=== PATIENT | female | born 1995 | race Caucasian/White ===

== ENCOUNTER 2018-02-13 08:37 | Inpatient (IN) | payer OTHER ==
[~2018-02-13] VITALS: Ht 157.5 cm; Wt 49.1 kg
[~2018-02-13 08:37] MED LIST: DEPRESSION
[2018-02-13 09:14] LABS: BASOPHILS # (AUTO) 0.04 x10^3/uL (0-0.1); BASOPHILS % (AUTO) 1 % (0-1); EOSINOPHILS # (AUTO) 0.01 x10^3/uL (0-0.4); EOSINOPHILS % (AUTO) 0 % (1-7); LYMPHOCYTES # (AUTO) 1.63 x10^3/uL (1-3.4); LYMPHOCYTES % (AUTO) 19 % (22-44); MD NO; MEAN CORPUSCULAR HEMOGLOBIN 31.5 pg (27.0-34.8); MEAN CORPUSCULAR HGB CONC 33.3 g/dL (32.4-35.8); MEAN CORPUSCULAR VOLUME 94.5 fL (80-100); MONOCYTES # (AUTO) 0.27 x10^3/uL (0.2-0.8); MONOCYTES % (AUTO) 3 % (2-9); NEUTROPHILS % (AUTO) 77 % (42-75); PLATELET COUNT 223 x10^3/uL (130-400); RED BLOOD COUNT 4.17 x10^6/uL (3.82-5.3); RED CELL DISTRIBUTION WIDTH 12.7 % (9.6-15.2)
[2018-02-13 09:27] LABS: ALBUMIN 3.7 g/dL (3.4-5.0); ANION GAP 8 mmol/L (5-15); CALCIUM 7.7 mg/dL (8.5-10.1); CHLORIDE 112 mmol/L (98-107); CREATININE 0.63 mg/dL (0.55-1.02); SALICYLATE LEVEL < 1.7 mg/dL (2.8-20.0)
[2018-02-13 09:33] LABS: ACETAMINOPHEN < 2 mcg/mL (10-30)
[2018-02-13] MEDS ORDERED: POLYETHYLENE GLYCOL 17 GM PACKET PO PRN (15:00)
[2018-02-13] MEDS ORDERED: BISACODYL 10 MG SUPP PR PRN (15:00)
[2018-02-13 15:24] LABS: ALANINE AMINOTRANSFERASE 34 U/L (12-78); ALBUMIN 3.7 g/dL (3.4-5.0)
[2018-02-13] MEDS ORDERED: PROCHLORPERAZINE 5 MG/ML, 2ML IM PRN (15:30)
[2018-02-13 15:35] LABS: ALKALINE PHOSPHATASE 56 U/L (45-117); BILIRUBIN,TOTAL 0.2 mg/dL (0.2-1.0); FREE T4 (FREE THYROXINE) 1.36 ng/dL (0.76-1.46); TOTAL PROTEIN 7.1 g/dL (6.4-8.2)
[2018-02-13 15:35] LABS: AMPHETAMINE SCREEN, URINE Negative (Negative); BARBITURATE SCREEN, URINE Negative (Negative); BENZODIAZEPINE SCREEN, URINE Positive (Negative); CANNABINOID SCREEN, URINE Negative (Negative); COCAINE SCREEN, URINE Negative (Negative); METHADONE SCREEN, URINE Negative (Negative); OPIATE SCREEN, URINE Negative (Negative)
[2018-02-13 15:40] LABS: BILIRUBIN, DIRECT < 0.1 mg/dL (0.1-0.2); BILIRUBIN,INDIRECT 0.1 mg/dL (0.0-2.0)
[2018-02-13] MEDS ORDERED: HEPARIN 5,000 UNITS/ML, 1ML ONE (15:45)
[2018-02-13] MEDS ORDERED: PROCHLORPERAZINE 5 MG/ML, 2ML ONE (15:45)
[2018-02-13] MEDS: HEPARIN 5,000 UNITS/ML, 1ML SQ SCH (15:56)
[2018-02-13 16:41] VITALS: BP 94/58
[2018-02-13] MEDS: NICOTINE 14MG/24 HR PATCH.TD24 TD SCH (17:51)
[2018-02-13] MEDS: SODIUM CHLORIDE 0.9% 1,000 ML IV SCH ×2 (17:51→23:30)
[2018-02-13 18:07] VITALS: BP 94/58
[2018-02-13 18:30] VITALS: BP 102/62
[2018-02-13] MEDS: CALCIUM CARBONATE 500 MG TAB.CHEW PO SCH (21:00)
[2018-02-14] MEDS: HEPARIN 5,000 UNITS/ML, 1ML SQ SCH ×4 (00:35→20:31)
[2018-02-14] MEDS: SODIUM CHLORIDE 0.9% 1,000 ML IV SCH ×3 (00:39→20:18)
[2018-02-14 01:12] VITALS: BP 100/66
[2018-02-14 04:32] VITALS: BP 99/66
[2018-02-14 06:04] LABS: ALANINE AMINOTRANSFERASE 25 U/L (12-78); ALBUMIN 2.9 g/dL (3.4-5.0); ANION GAP 7 mmol/L (5-15); CALCIUM 7.5 mg/dL (8.5-10.1); CHLORIDE 110 mmol/L (98-107); CREATININE 0.64 mg/dL (0.55-1.02)
[2018-02-14 06:06] LABS: ALKALINE PHOSPHATASE 49 U/L (45-117); BILIRUBIN,TOTAL 0.6 mg/dL (0.2-1.0); TOTAL PROTEIN 5.7 g/dL (6.4-8.2)
[2018-02-14 08:06] VITALS: BP 108/67
[2018-02-14] MEDS ORDERED: POTASSIUM CHLORIDE 20 MEQ TAB.ER.PRT PO ONE (09:00)
[2018-02-14] MEDS: CALCIUM CARBONATE 500 MG TAB.CHEW PO SCH ×2 (09:27→20:19)
[2018-02-14] MEDS: THIAMINE 100MG TABLET PO SCH (09:28)
[2018-02-14] MEDS: FOLIC ACID 1 MG TABLET PO SCH (09:28)
[2018-02-14] MEDS: MULTIVITAMINS/MINERALS TABLET PO SCH (09:28)
[2018-02-14 12:46] LABS: AMPHETAMINE SCREEN, URINE Negative (Negative); BARBITURATE SCREEN, URINE Negative (Negative); BENZODIAZEPINE SCREEN, URINE Positive (Negative); CANNABINOID SCREEN, URINE Negative (Negative); COCAINE SCREEN, URINE Negative (Negative); METHADONE SCREEN, URINE Negative (Negative); OPIATE SCREEN, URINE Negative (Negative)
[2018-02-14 13:08] VITALS: BP_SYST 110; BP_SYST 150; BP_DIAS 74; BP_DIAS 85
[2018-02-14] MEDS: NICOTINE 14MG/24 HR PATCH.TD24 TD SCH (16:29)
[2018-02-14 19:18] VITALS: BP 107/70
[2018-02-15 00:34] VITALS: BP 99/64
[2018-02-15] MEDS: HEPARIN 5,000 UNITS/ML, 1ML SQ SCH ×3 (04:24→20:34)
[2018-02-15 05:14] LABS: ALBUMIN 3.2 g/dL (3.4-5.0); ANION GAP 6 mmol/L (5-15); CALCIUM 8.2 mg/dL (8.5-10.1); CHLORIDE 109 mmol/L (98-107)
[2018-02-15 05:15] LABS: CREATININE 0.71 mg/dL (0.55-1.02)
[2018-02-15 07:23] VITALS: BP 118/71
[2018-02-15] MEDS: SODIUM CHLORIDE 0.9% 1,000 ML IV SCH ×3 (07:30→23:30)
[2018-02-15] MEDS: LORazepam 1MG TABLET PO PRN ×3 (09:52→20:34)
[2018-02-15] MEDS: THIAMINE 100MG TABLET PO SCH (09:52)
[2018-02-15] MEDS: FOLIC ACID 1 MG TABLET PO SCH (09:53)
[2018-02-15] MEDS: MULTIVITAMINS/MINERALS TABLET PO SCH (09:53)
[2018-02-15] MEDS: CALCIUM CARBONATE 500 MG TAB.CHEW PO SCH ×2 (09:53→20:34)
[2018-02-15] MEDS: MAGNESIUM OXIDE 400 MG TABLET PO SCH ×2 (09:53→20:34)
[2018-02-15 13:43] VITALS: BP 117/82
[2018-02-15] MEDS: NICOTINE 14MG/24 HR PATCH.TD24 TD SCH (14:35)
[2018-02-15 18:57] VITALS: BP 111/71
[2018-02-16 02:10] VITALS: BP 101/66
[2018-02-16] MEDS: HEPARIN 5,000 UNITS/ML, 1ML SQ SCH ×3 (06:08→20:56)
[2018-02-16] MEDS: SODIUM CHLORIDE 0.9% 1,000 ML IV SCH (07:30)
[2018-02-16 07:37] VITALS: BP 99/66
[2018-02-16] MEDS: CALCIUM CARBONATE 500 MG TAB.CHEW PO SCH ×2 (09:00→20:57)
[2018-02-16] MEDS: FOLIC ACID 1 MG TABLET PO SCH (09:00)
[2018-02-16] MEDS: LORazepam 1MG TABLET PO PRN ×4 (09:12→22:44)
[2018-02-16] MEDS: MAGNESIUM OXIDE 400 MG TABLET PO SCH ×2 (09:12→20:56)
[2018-02-16] MEDS: MULTIVITAMINS/MINERALS TABLET PO SCH (09:12)
[2018-02-16] MEDS: THIAMINE 100MG TABLET PO SCH (09:12)
[2018-02-16 13:46] VITALS: BP 101/70
[2018-02-16] MEDS ORDERED: LORazepam 0.5MG TABLET PO ONE (14:00)
[2018-02-16] MEDS: NICOTINE 14MG/24 HR PATCH.TD24 TD SCH (15:08)
[2018-02-16 19:54] VITALS: BP 101/67
[2018-02-17 00:15] VITALS: BP 102/67
[2018-02-17] MEDS: HEPARIN 5,000 UNITS/ML, 1ML SQ SCH ×3 (06:00→21:13)
[2018-02-17 08:02] VITALS: BP 96/68
[2018-02-17] MEDS: MULTIVITAMINS/MINERALS TABLET PO SCH (08:20)
[2018-02-17] MEDS: MAGNESIUM OXIDE 400 MG TABLET PO SCH ×2 (08:20→21:12)
[2018-02-17] MEDS: FOLIC ACID 1 MG TABLET PO SCH (08:20)
[2018-02-17] MEDS: THIAMINE 100MG TABLET PO SCH (08:20)
[2018-02-17] MEDS: CALCIUM CARBONATE 500 MG TAB.CHEW PO SCH ×2 (08:20→21:12)
[2018-02-17] MEDS: LORazepam 1MG TABLET PO PRN ×4 (08:20→21:12)
[2018-02-17 12:21] VITALS: BP 103/72
[2018-02-17] MEDS: NICOTINE 14MG/24 HR PATCH.TD24 TD SCH (12:46)
[2018-02-17 19:00] VITALS: BP 102/67
[2018-02-18 03:30] VITALS: BP 99/65
[2018-02-18] MEDS: HEPARIN 5,000 UNITS/ML, 1ML SQ SCH ×3 (05:20→21:57)
[2018-02-18] MEDS: LORazepam 1MG TABLET PO PRN ×5 (05:29→20:35)
[2018-02-18 08:39] VITALS: BP 91/62
[2018-02-18] MEDS: FOLIC ACID 1 MG TABLET PO SCH (08:57)
[2018-02-18] MEDS: THIAMINE 100MG TABLET PO SCH (08:58)
[2018-02-18] MEDS: MULTIVITAMINS/MINERALS TABLET PO SCH (08:58)
[2018-02-18] MEDS: CALCIUM CARBONATE 500 MG TAB.CHEW PO SCH ×2 (08:58→20:35)
[2018-02-18] MEDS: MAGNESIUM OXIDE 400 MG TABLET PO SCH ×2 (08:58→20:36)
[2018-02-18] MEDS: NICOTINE 14MG/24 HR PATCH.TD24 TD SCH (13:04)
[2018-02-18 13:08] VITALS: BP 117/70
[2018-02-18 18:52] VITALS: BP 97/68
[2018-02-18] MEDS: ARIPIPRAZOLE 5 MG TABLET PO SCH ×2 (19:17→20:36)
[2018-02-19 02:15] VITALS: BP 110/72
[2018-02-19 05:07] LABS: ANION GAP 8 mmol/L (5-15); CHLORIDE 104 mmol/L (98-107)
[2018-02-19 05:08] LABS: CREATININE 0.76 mg/dL (0.55-1.02)
[2018-02-19 05:16] LABS: BASOPHILS # (AUTO) 0.06 x10^3/uL (0-0.1); BASOPHILS % (AUTO) 1 % (0-1); EOSINOPHILS # (AUTO) 0.06 x10^3/uL (0-0.4); EOSINOPHILS % (AUTO) 1 % (1-7); LYMPHOCYTES # (AUTO) 3.69 x10^3/uL (1-3.4); LYMPHOCYTES % (AUTO) 41 % (22-44); MD NO; MEAN CORPUSCULAR HEMOGLOBIN 31.6 pg (27.0-34.8); MEAN CORPUSCULAR HGB CONC 33.5 g/dL (32.4-35.8); MEAN CORPUSCULAR VOLUME 94.3 fL (80-100); MEAN PLATELET VOLUME 7.1 fL (7.4-10.4); MONOCYTES # (AUTO) 0.79 x10^3/uL (0.2-0.8); MONOCYTES % (AUTO) 9 % (2-9); NEUTROPHILS # (AUTO) 4.43 x10^3/uL (1.8-6.8); NEUTROPHILS % (AUTO) 49 % (42-75); PLATELET COUNT 350 x10^3/uL (130-400); RED BLOOD COUNT 4.68 x10^6/uL (3.82-5.3); RED CELL DISTRIBUTION WIDTH 12.2 % (9.6-15.2)
[2018-02-19] MEDS: HEPARIN 5,000 UNITS/ML, 1ML SQ SCH ×3 (06:00→20:09)
[2018-02-19 07:53] VITALS: BP 100/66
[2018-02-19] MEDS: MULTIVITAMINS/MINERALS TABLET PO SCH (08:12)
[2018-02-19] MEDS: MAGNESIUM OXIDE 400 MG TABLET PO SCH ×2 (08:12→20:08)
[2018-02-19] MEDS: FOLIC ACID 1 MG TABLET PO SCH (08:12)
[2018-02-19] MEDS: THIAMINE 100MG TABLET PO SCH (08:12)
[2018-02-19] MEDS: ACETAMINOPHEN 325 MG TABLET PO PRN (08:12)
[2018-02-19] MEDS: LORazepam 1MG TABLET PO PRN ×3 (08:12→16:39)
[2018-02-19] MEDS: CALCIUM CARBONATE 500 MG TAB.CHEW PO SCH ×2 (08:14→20:08)
[2018-02-19] MEDS: NICOTINE GUM 2 MG BC PRN ×3 (08:18→20:08)
[2018-02-19] MEDS: GABAPENTIN 100 MG CAPSULE PO SCH ×3 (14:02→20:08)
[2018-02-19 14:20] VITALS: BP 95/63
[2018-02-19 19:11] VITALS: BP 97/66
[2018-02-20 02:31] VITALS: BP 93/61
[2018-02-20] MEDS: HEPARIN 5,000 UNITS/ML, 1ML SQ SCH ×3 (05:14→20:27)
[2018-02-20 08:09] VITALS: BP 106/71
[2018-02-20] MEDS: ARIPIPRAZOLE 5 MG TABLET PO SCH (08:36)
[2018-02-20] MEDS: THIAMINE 100MG TABLET PO SCH (08:36)
[2018-02-20] MEDS: CALCIUM CARBONATE 500 MG TAB.CHEW PO SCH ×2 (08:36→20:10)
[2018-02-20] MEDS: MAGNESIUM OXIDE 400 MG TABLET PO SCH ×2 (08:36→20:28)
[2018-02-20] MEDS: GABAPENTIN 100 MG CAPSULE PO SCH ×2 (08:36→16:27)
[2018-02-20] MEDS: FOLIC ACID 1 MG TABLET PO SCH (08:36)
[2018-02-20] MEDS: MULTIVITAMINS/MINERALS TABLET PO SCH (08:36)
[2018-02-20] MEDS: NICOTINE GUM 2 MG BC PRN ×2 (10:41→22:52)
[2018-02-20] MEDS: LORazepam 1MG TABLET PO PRN (11:36)
[2018-02-20 12:42] VITALS: BP 107/70
[2018-02-20 18:59] VITALS: BP 101/63
[2018-02-20] MEDS: GABAPENTIN 300 MG CAPSULE PO SCH (20:28)
[2018-02-21 01:09] VITALS: BP 97/61
[2018-02-21] MEDS: HEPARIN 5,000 UNITS/ML, 1ML SQ SCH ×2 (05:51→14:00)
[2018-02-21 08:07] VITALS: BP 106/67
[2018-02-21] MEDS: MULTIVITAMINS/MINERALS TABLET PO SCH (08:36)
[2018-02-21] MEDS: GABAPENTIN 300 MG CAPSULE PO SCH (08:36)
[2018-02-21] MEDS: CALCIUM CARBONATE 500 MG TAB.CHEW PO SCH (08:37)
[2018-02-21] MEDS: FOLIC ACID 1 MG TABLET PO SCH (08:37)
[2018-02-21] MEDS: THIAMINE 100MG TABLET PO SCH (08:37)
[2018-02-21] MEDS: MAGNESIUM OXIDE 400 MG TABLET PO SCH (08:37)
[2018-02-21] MEDS: ACETAMINOPHEN 325 MG TABLET PO PRN (08:37)
[2018-02-21] MEDS: ARIPIPRAZOLE 5 MG TABLET PO SCH (08:37)
[2018-02-21] MEDS ORDERED: ARIPIPRAZOLE 5 MG TABLET PO ONE (09:00)
[2018-02-21] MEDS ORDERED: FOLI-17 PO (12:38)
[2018-02-21] MEDS ORDERED: GABA300C10 PO (12:38)
[2018-02-21] MEDS ORDERED: MULT-484 PO (12:38)
[2018-02-21] MEDS ORDERED: ARIP10TA33 PO (12:38)
[2018-02-21] MEDS ORDERED: THIA100T67 PO (12:38)
[2018-02-22] MEDS ORDERED: ARIPIPRAZOLE 10 MG TABLET PO SCH (09:00)
== END 2018-02-21 14:30 | DRG 918 ==
LOC: ED 10:38 → OBSVTOIN 14:12 → EDIP 14:12 → 3NE 16:39
PROVIDERS: ADMIT Hospitalist; ATTEND Hospitalist
DX: T42.6X2A Poisoning by other antiepileptic and sedative-hypnotic drugs, intentional self-harm, initial encounter (principal); Y92.89 Other specified places as the place of occurrence of the external cause; R00.0 Tachycardia, unspecified; E83.51 Hypocalcemia; F10.229 Alcohol dependence with intoxication, unspecified; F31.9 Bipolar disorder, unspecified; F41.0 Panic disorder [episodic paroxysmal anxiety]; F41.1 Generalized anxiety disorder; Y90.3 Blood alcohol level of 60-79 mg/100 ml; Z62.820 Parent-biological child conflict; F32.9 Major depressive disorder, single episode, unspecified; F17.200 Nicotine dependence, unspecified, uncomplicated; Z81.8 Family history of other mental and behavioral disorders; Z91.5 Personal history of self-harm
CPT/HCPCS: 36415; 71045; 80048; 80053; 80076; 80175; 80307; 80329; 82040; 83735; 84100; 84439; 84443; 84702; 84703; 85025; 93005; 96372; 99285; J1644; G0480; J0780; J7030

== ENCOUNTER 2020-09-06 10:00 | Inpatient (IN) | payer OTHER, MEDICAID ==
[~2020-09-06] VITALS: Ht 157.5 cm; Wt 54.5 kg
[~2020-09-06 10:00] MED LIST changes: +ARIP10TA33 PO; +FOLI1TAB32 PO; +GABA300C10 PO; +MULT-484 PO; +THIA100T67 PO
--- NOTE | 2020-09-06 10:19 | NUR ---
Pt ARI [facility] from home after her SO called 911. He reports pt took an intentional overdose of her medications. Unknown time of ingestion but EMS reports that pt was A&O x1 on their arrival, agitated, combative. EMS administered 5mg Versed IV. On pt arrival somnolent, A&Ox0, withdraws from painful stimuli, skin PWD. Pt placed in gown and positioned for comfort in bed. Continuous heart, oxygen and BP Monitors applied, all safety measures observed. Seizure precautions in place. Dr. Hansen at bedside to evaluate pt. Pt does have gag reflex and briefly opens her eyes when asked to. ETCO2 monitoring initiated. Sitter within eyesight of pt.
--- NOTE | 2020-09-06 10:20 | NUR ---
Late entry due to pt care: Pills ingested by pt and approximate amounts taken. Prozac= 20 tabs Camprac= 50tabs Gabapentin= 50tabs Lamictal= 10tabs
[2020-09-06] MEDS ORDERED: SODIUM BICARB 8.4%, 50ML SYRINGE ONE (10:29)
[2020-09-06] MEDS ORDERED: SODIUM BICARBONATE 1 MEQ/ML, 50ML VIAL IVPush ONE (10:30)
[2020-09-06] MEDS ORDERED: SODIUM CHLORIDE 0.9% 1,000ML IVBOLUS ONE (10:30)
[2020-09-06] MEDS ORDERED: LORazepam 2 MG/ML, 1ML ONE (10:58)
--- NOTE | 2020-09-06 11:03 | NUR ---
This RN called into room by sitter. Pt with erratic muscle movements, jerking arms, thrashing in bed, unresponsive to pain. Dr. Hansen called into room. Orders recieved for Ativan 1mg IVP. Pt kept safe by staff members. Pt medicated per order and positioned for comfort. Soft wrist restraints applied per MD order to prevent pt from harming herself. All montiors remain in place, sitter at bedside.
[2020-09-06 11:08] LABS: AMPHETAMINE SCREEN, URINE Negative (Negative); BARBITURATE SCREEN, URINE Negative (Negative); BENZODIAZEPINE SCREEN, URINE Negative (Negative); CANNABINOID SCREEN, URINE Negative (Negative); COCAINE SCREEN, URINE Negative (Negative); METHADONE SCREEN, URINE Negative (Negative); OPIATE SCREEN, URINE Negative (Negative)
[2020-09-06 11:14] LABS: BASOPHILS % (AUTO) 1 % (0-1); EOSINOPHILS % (AUTO) 0 % (1-7); LYMPHOCYTES % (AUTO) 28 % (22-44); MEAN CORPUSCULAR HEMOGLOBIN 31.8 pg (27.0-34.8); MEAN CORPUSCULAR HGB CONC 33.3 g/dL (32.4-35.8); MEAN PLATELET VOLUME 6.8 fL (7.4-10.4); MONOCYTES % (AUTO) 5 % (2-9); NEUTROPHILS % (AUTO) 66 % (42-75); PLATELET COUNT 252 x10^3/uL (130-400); RED BLOOD COUNT 4.14 x10^6/uL (3.82-5.3)
[2020-09-06 11:15] LABS: ALANINE AMINOTRANSFERASE 20 U/L (12-78); ALBUMIN 3.8 g/dL (3.4-5.0); ANION GAP 7 mmol/L (5-15); CALCIUM 7.9 mg/dL (8.5-10.1); CHLORIDE 115 mmol/L (98-107); CREATININE 0.98 mg/dL (0.55-1.02)
[2020-09-06 11:17] LABS: MD NO
[2020-09-06 11:21] LABS: ALKALINE PHOSPHATASE 47 U/L (45-117); BILIRUBIN,TOTAL 0.4 mg/dL (0.2-1.0); SALICYLATE LEVEL 1.9 mg/dL (2.8-20.0); TOTAL PROTEIN 6.4 g/dL (6.4-8.2)
--- NOTE | 2020-09-06 11:29 | NUR ---
Pt appears more calm after medications. Pt's father Kevin arrived at bedside. POC discussed. Pt's father denies other needs.
[2020-09-06] MEDS ORDERED: PIPERACILLIN/TAZO/PMX 3.375GM 50 ML IVPB ONE (11:30)
[2020-09-06] MEDS ORDERED: LORazepam 2 MG/ML, 1ML IVPush ONE ×2 (11:30)
--- NOTE | 2020-09-06 11:34 | NUR ---
Nestor REGAN at bedside to evlauate pt.
[2020-09-06] MEDS ORDERED: PIPERACILLIN/TAZO/PMX 3.375GM 50 ML ONE (11:48)
--- NOTE | 2020-09-06 11:48 | NUR ---
Pt's mother Priti at bedside. POC discussed with pt's mother, she denies needs at this time. Pt condition remains unchanged from previous note.
[2020-09-06] MEDS ORDERED: ROCURONIUM 10 MG/ML,10ML IVPush ONE (13:00)
[2020-09-06] MEDS ORDERED: ETOMIDATE 20 MG/10 ML IV ONE (13:00)
[2020-09-06] MEDS ORDERED: FENTANYL PF 100 MCG/2ML IVPush ONE (13:00)
--- NOTE | 2020-09-06 13:23 | NUR ---
1246-PT MOVED TO TRAUMA 4 1253-MEDICATION ADMINISTRATION FOR INTUBATION, PLEASE SEE EMAR FOR DOSAGES 1255- 7.5 ETT 23 AT THE LIP PLACED. 1304- 16 FR OG TUBE PLACED WITH AUSCULTATION PLACEMENT CONFIRMATION. 1308- XRAY AT BEDSIDE TO CONFIRM OG AND ETT 1312- TEMP PROBE SAINI PLACED. 225 ML URINE OUTPUT UPON PLACEMENT.
[2020-09-06] MEDS ORDERED: ONDANSETRON 2MG/ML, 2ML IVPush PRN (13:30)
[2020-09-06] MEDS ORDERED: LABETALOL 5MG/ML, 20ML IVPush PRN (13:30)
[2020-09-06] MEDS ORDERED: ENALAPRILAT 1.25 MG/ML, 2ML IVPush PRN (13:30)
[2020-09-06] MEDS ORDERED: POLYETHYLENE GLYCOL 17 GM PACKET PO PRN (13:30)
[2020-09-06] MEDS ORDERED: morphine SULFATE 10 MG/ML, 1ML IVPush PRN (13:30)
[2020-09-06] MEDS ORDERED: ACETAMINOPHEN 325 MG TABLET PO PRN (13:30)
[2020-09-06] MEDS ORDERED: BISACODYL 10 MG SUPP PR PRN (13:30)
[2020-09-06] MEDS ORDERED: OXYcodone IR 5MG TABLET PO PRN (13:30)
--- NOTE | 2020-09-06 13:35 | NUR ---
TWO BLANKETS AND BEAR PAW WARMER APPLIED.
--- NOTE | 2020-09-06 13:40 | NUR ---
ELISABETH TOVAR TO GIVE REPORT
--- NOTE | 2020-09-06 13:50 | NUR ---
Report called to Anil BARBER. Floor ready for pt transfer. Pt's family members updated. Pt family members at bedside to be with pt, visiting hours explained to family members who verbalize understanding.
[2020-09-06] MEDS ORDERED: FENTANYL PF 100 MCG/2ML IVPush PRN (14:00)
[2020-09-06] MEDS ORDERED: PHARMACY MAY ADJ FOR RENAL FX MC SCH (14:00)
[2020-09-06] MEDS ORDERED: LIDOCAINE-MPF 1%, 2ML ENDO PRN (14:00)
[2020-09-06] MEDS ORDERED: ENOXAPARIN 40 MG/0.4 ML ONE (14:11)
[2020-09-06] MEDS: ENOXAPARIN 40 MG/0.4 ML SQ SCH (14:38)
[2020-09-06] MEDS: LACTATED RINGERS 1,000 ML IV SCH ×2 (14:38→20:11)
[2020-09-06] MEDS: PROPOFOL 100 ML IV PRN ×2 (15:00→19:18)
[2020-09-06] MEDS: AMPICILLIN/SULBACTAM 3 GM in SODIUM CHLORIDE 0.9% 100 ML IV SCH ×2 (15:57→21:29)
[2020-09-06] MEDS ORDERED: ETOMIDATE 20 MG/10 ML ONE (19:00)
[2020-09-06] MEDS: FAMOTIDINE 20 MG/2 ML IVPush SCH (20:07)
[2020-09-07] MEDS: LACTATED RINGERS 1,000 ML IV SCH ×4 (03:05→23:25)
[2020-09-07] MEDS: PROPOFOL 100 ML IV PRN ×2 (03:05→09:28)
[2020-09-07] MEDS: AMPICILLIN/SULBACTAM 3 GM in SODIUM CHLORIDE 0.9% 100 ML IV SCH ×3 (03:07→17:48)
[2020-09-07 04:27] LABS: BASOPHILS % (AUTO) 1 % (0-1); EOSINOPHILS % (AUTO) 1 % (1-7); LYMPHOCYTES % (AUTO) 32 % (22-44); MEAN CORPUSCULAR HEMOGLOBIN 32.2 pg (27.0-34.8); MEAN CORPUSCULAR HGB CONC 33.4 g/dL (32.4-35.8); MEAN PLATELET VOLUME 7.3 fL (7.4-10.4); MONOCYTES % (AUTO) 6 % (2-9); NEUTROPHILS % (AUTO) 61 % (42-75); PLATELET COUNT 187 x10^3/uL (130-400); RED BLOOD COUNT 3.43 x10^6/uL (3.82-5.3); RED CELL DISTRIBUTION WIDTH 12.3 % (9.6-15.2)
[2020-09-07 04:34] LABS: ALANINE AMINOTRANSFERASE 16 U/L (12-78); ALBUMIN 2.8 g/dL (3.4-5.0); ANION GAP 7 mmol/L (5-15); CALCIUM 7.2 mg/dL (8.5-10.1); CHLORIDE 118 mmol/L (98-107); CREATININE 0.89 mg/dL (0.55-1.02); MD NO
[2020-09-07 04:36] LABS: ALKALINE PHOSPHATASE 39 U/L (45-117); BILIRUBIN,TOTAL 0.5 mg/dL (0.2-1.0); TOTAL PROTEIN 4.8 g/dL (6.4-8.2)
[2020-09-07] MEDS ORDERED: SODIUM PHOSPHATE 10 MMOL in SODIUM CHLORIDE 0.9% 500 ML IV ONE (06:30)
[2020-09-07] MEDS: LORazepam 2 MG/ML, 1ML IVPush PRN (06:59)
[2020-09-07] MEDS ORDERED: MIDAZOLAM HCL 50 MG in SODIUM CHLORIDE 0.9% 40 ML IV PRN (07:00)
[2020-09-07 07:32] LABS: SALICYLATE LEVEL < 1.7 mg/dL (2.8-20.0)
[2020-09-07] MEDS ORDERED: VANCOMYCIN 1,400 MG in SODIUM CHLORIDE 0.9% 250 ML IV ONE (08:00)
[2020-09-07] MEDS ORDERED: VANCOMYCIN PER PHARMACY MC PRN (08:00)
[2020-09-07] MEDS ORDERED: PHARMACOKINETIC MONITORING MC PRN (08:00)
[2020-09-07] MEDS ORDERED: PHARMACOKINETIC CONSULTATION MC ONE (08:00)
[2020-09-07] MEDS: FAMOTIDINE 20 MG/2 ML IVPush SCH ×2 (08:21→20:53)
[2020-09-07] MEDS: POTASSIUM CHLORIDE 20 MEQ PACKET PO SCH ×2 (08:22→20:54)
[2020-09-07] MEDS: SENNA/DOCUSATE TABLET PO SCH (08:22)
[2020-09-07] MEDS: ENOXAPARIN 40 MG/0.4 ML SQ SCH (14:02)
[2020-09-07] MEDS: VANCOMYCIN 1,100 MG in SODIUM CHLORIDE 0.9% 250 ML IV SCH (20:53)
[2020-09-08] MEDS: AMPICILLIN/SULBACTAM 3 GM in SODIUM CHLORIDE 0.9% 100 ML IV SCH ×5 (00:07→23:35)
[2020-09-08] MEDS: PROPOFOL 100 ML IV PRN ×5 (01:02→23:40)
[2020-09-08 04:31] LABS: BASOPHILS % (AUTO) 1 % (0-1); EOSINOPHILS % (AUTO) 1 % (1-7); LYMPHOCYTES % (AUTO) 35 % (22-44); MEAN CORPUSCULAR HGB CONC 33.1 g/dL (32.4-35.8); MONOCYTES % (AUTO) 6 % (2-9); NEUTROPHILS % (AUTO) 58 % (42-75); PLATELET COUNT 206 x10^3/uL (130-400); RED BLOOD COUNT 3.73 x10^6/uL (3.82-5.3); RED CELL DISTRIBUTION WIDTH 12.1 % (9.6-15.2)
[2020-09-08 04:32] LABS: MD NO
[2020-09-08] MEDS: LACTATED RINGERS 1,000 ML IV SCH ×3 (06:10→20:10)
[2020-09-08 06:56] LABS: ANION GAP 9 mmol/L (5-15); CALCIUM 7.6 mg/dL (8.5-10.1); CHLORIDE 118 mmol/L (98-107); CREATININE 0.82 mg/dL (0.55-1.02)
[2020-09-08] MEDS ORDERED: MAGNESIUM SULFATE PMX 2GM/50ML 50 ML IV ONE (07:00)
[2020-09-08] MEDS: SENNA/DOCUSATE TABLET PO SCH (08:09)
[2020-09-08] MEDS: FAMOTIDINE 20 MG/2 ML IVPush SCH ×2 (08:15→20:10)
[2020-09-08] MEDS ORDERED: POTASSIUM CHLORIDE 20 MEQ PACKET PO ONE (08:30)
[2020-09-08] MEDS: VANCOMYCIN 1,100 MG in SODIUM CHLORIDE 0.9% 250 ML IV SCH (09:34)
[2020-09-08] MEDS: ENOXAPARIN 40 MG/0.4 ML SQ SCH (12:40)
[2020-09-08] MEDS ORDERED: POTASSIUM CHLORIDE 10% 40 MEQ/30 ML UDC PO ONE (20:00)
[2020-09-09] MEDS: LACTATED RINGERS 1,000 ML IV SCH (02:23)
[2020-09-09] MEDS: PROPOFOL 100 ML IV PRN (03:45)
[2020-09-09 04:50] LABS: BASOPHILS % (AUTO) 1 % (0-1); EOSINOPHILS % (AUTO) 1 % (1-7); LYMPHOCYTES % (AUTO) 26 % (22-44); MEAN CORPUSCULAR HEMOGLOBIN 32.6 pg (27.0-34.8); MEAN CORPUSCULAR HGB CONC 33.9 g/dL (32.4-35.8); MEAN PLATELET VOLUME 6.8 fL (7.4-10.4); MONOCYTES % (AUTO) 6 % (2-9); NEUTROPHILS % (AUTO) 67 % (42-75); PLATELET COUNT 224 x10^3/uL (130-400); RED BLOOD COUNT 3.72 x10^6/uL (3.82-5.3); RED CELL DISTRIBUTION WIDTH 12.2 % (9.6-15.2)
[2020-09-09 04:56] LABS: MD NO
[2020-09-09] MEDS: AMPICILLIN/SULBACTAM 3 GM in SODIUM CHLORIDE 0.9% 100 ML IV SCH (05:08)
[2020-09-09 07:26] LABS: ANION GAP 8 mmol/L (5-15); CALCIUM 7.8 mg/dL (8.5-10.1); CHLORIDE 116 mmol/L (98-107); CREATININE 0.75 mg/dL (0.55-1.02)
[2020-09-09] MEDS: SENNA/DOCUSATE TABLET PO SCH (09:00)
[2020-09-09] MEDS: POTASSIUM CHLORIDE 20 MEQ PACKET PO SCH ×2 (09:00→21:00)
[2020-09-09] MEDS: FAMOTIDINE 20 MG/2 ML IVPush SCH ×2 (10:00→22:22)
[2020-09-09] MEDS: DEXMEDETOMIDINE 200 MCG in SODIUM CHLORIDE 0.9% 48 ML IV PRN ×2 (10:00→18:30)
[2020-09-09] MEDS: ENOXAPARIN 40 MG/0.4 ML SQ SCH (15:07)
[2020-09-10] MEDS: DEXMEDETOMIDINE 200 MCG in SODIUM CHLORIDE 0.9% 48 ML IV PRN (00:42)
[2020-09-10 04:30] LABS: BASOPHILS % (AUTO) 1 % (0-1); EOSINOPHILS % (AUTO) 1 % (1-7); LYMPHOCYTES % (AUTO) 38 % (22-44); MEAN CORPUSCULAR HGB CONC 33.5 g/dL (32.4-35.8); MEAN PLATELET VOLUME 7.1 fL (7.4-10.4); MONOCYTES % (AUTO) 7 % (2-9); NEUTROPHILS % (AUTO) 53 % (42-75); PLATELET COUNT 196 x10^3/uL (130-400); RED BLOOD COUNT 3.64 x10^6/uL (3.82-5.3); RED CELL DISTRIBUTION WIDTH 12.1 % (9.6-15.2)
[2020-09-10 04:33] LABS: MD NO
[2020-09-10 05:26] LABS: CHLORIDE 113 mmol/L (98-107)
[2020-09-10 05:34] LABS: ALANINE AMINOTRANSFERASE 41 U/L (12-78); ALBUMIN 2.7 g/dL (3.4-5.0); ALKALINE PHOSPHATASE 47 U/L (45-117); ANION GAP 9 mmol/L (5-15); BILIRUBIN,TOTAL 0.6 mg/dL (0.2-1.0); CALCIUM 7.6 mg/dL (8.5-10.1); CREATININE 0.55 mg/dL (0.55-1.02); TOTAL PROTEIN 5.3 g/dL (6.4-8.2)
[2020-09-10] MEDS: SENNA/DOCUSATE TABLET PO SCH (05:59)
[2020-09-10] MEDS: POTASSIUM CHLORIDE 20 MEQ TAB.ER.PRT PO SCH ×2 (08:57→16:13)
[2020-09-10] MEDS: FAMOTIDINE 20 MG/2 ML IVPush SCH (08:57)
[2020-09-10 11:15] VITALS: BP 111/72
[2020-09-10 12:01] VITALS: BP 111/72
[2020-09-10] MEDS: ENOXAPARIN 40 MG/0.4 ML SQ SCH (15:12)
[2020-09-10 18:46] VITALS: BP 117/78
[2020-09-10] MEDS: FAMOTIDINE 20 MG TABLET PO SCH (21:21)
[2020-09-11 00:04] VITALS: BP 111/66
[2020-09-11 06:44] VITALS: BP 120/78
[2020-09-11] MEDS: SENNA/DOCUSATE TABLET PO SCH (08:36)
[2020-09-11] MEDS: FAMOTIDINE 20 MG TABLET PO SCH (08:36)
[2020-09-11 13:32] VITALS: BP 115/73
[2020-09-11] MEDS: ENOXAPARIN 40 MG/0.4 ML SQ SCH (15:00)
== END 2020-09-11 18:47 | DRG 917 ==
LOC: EDBD 10:00 → MERGE 10:00 → ED 11:55 → CCU 14:56 → CSU 09-09 15:57 → 3N 09-10 11:00
PROVIDERS: ADMIT Internal Medicine; ATTEND Internal Medicine
PROC: 0BH17EZ Insertion of Endotracheal Airway into Trachea, Via Natural or Artificial Opening (ICD-10-PCS; principal; 2020-09-06)
PROC: 5A1945Z Respiratory Ventilation, 24-96 Consecutive Hours (ICD-10-PCS; 2020-09-06)
DX: T50.912A Poisoning by multiple unspecified drugs, medicaments and biological substances, intentional self-harm, initial encounter (principal); J96.01 Acute respiratory failure with hypoxia; G92 Toxic encephalopathy; E87.2 Acidosis; Z99.11 Dependence on respirator [ventilator] status; E83.51 Hypocalcemia; E87.6 Hypokalemia; F31.9 Bipolar disorder, unspecified; F41.9 Anxiety disorder, unspecified; Z78.1 Physical restraint status; Z91.5 Personal history of self-harm
CPT/HCPCS: 36415; 36600; 70450; 71045; 80048; 80053; 80299; 80307; 80320; 80329; 82140; 82803; 83605; 83735; 84100; 84145; 84443; 84478; 84703; 85025; 87040; 87070; 87081; 87205; 93005; 94002; 94003; 95819; 96361; 96374; 96375; 99291; G0378; J0295; J1650; J2250; J2405; J2543; J2704; J3370; G0480; J2060; J3475; J7030; J7040; J7050; J7120

== ENCOUNTER 2020-10-03 18:28 | Emergency (ER) | payer OTHER, MEDICAID ==
[~2020-10-03] VITALS: Ht 154.9 cm; Wt 50.0 kg
[2020-10-03] MEDS ORDERED: THIAMINE 100MG TABLET ONE (19:19)
[2020-10-03] MEDS ORDERED: ONDANSETRON 2MG/ML, 2ML ONE (19:19)
[2020-10-03] MEDS ORDERED: THIAMINE 100MG TABLET PO ONE (19:30)
[2020-10-03] MEDS ORDERED: ONDANSETRON 2MG/ML, 2ML IVPush ONE (19:30)
[2020-10-03] MEDS ORDERED: LORazepam 2 MG/ML, 1ML IVPush PRN (19:30)
[2020-10-03] MEDS ORDERED: SODIUM CHLORIDE 0.9% 1,000ML IVBOLUS ONE (19:30)
[2020-10-03] MEDS ORDERED: SODIUM CHLORIDE FLUSH 10ML SYR IVF ONE ×2 (19:30)
--- NOTE | 2020-10-03 19:32 | NUR ---
PIV PLACED, LABS DRAWN AND SENT TO LAB WITH LAB STICKERS. MEDS ADMIN PER AUG, IVF RUNNING. FAMILY AT BEDSIDE. PT A&OX4 AND IN GOOD SPIRITS. PT WANTS TO DETOX. PT STATES SHE HAS NOT USED ANY DRUG IN THE LAST WEEK, ONLY ETOH. PT CONNECTED TO MONITORING. CALL LIGHT IN REACH. PT AWARE OF PRN ORDER FOR ATIVAN AND WHAT TO LOOK FOR WHEN DETOXING.
[2020-10-03 19:33] LABS: ALANINE AMINOTRANSFERASE 73 U/L (12-78); ALBUMIN 3.9 g/dL (3.4-5.0); ANION GAP 12 mmol/L (5-15); CALCIUM 8.1 mg/dL (8.5-10.1); CHLORIDE 105 mmol/L (98-107); CREATININE 0.75 mg/dL (0.55-1.02)
[2020-10-03 19:38] LABS: ALKALINE PHOSPHATASE 60 U/L (45-117); TOTAL PROTEIN 7.1 g/dL (6.4-8.2)
[2020-10-03 19:50] LABS: BASOPHILS % (AUTO) 1 % (0-1); EOSINOPHILS % (AUTO) 0 % (1-7); LYMPHOCYTES % (AUTO) 26 % (22-44); MEAN CORPUSCULAR HEMOGLOBIN 31.7 pg (27.0-34.8); MEAN CORPUSCULAR HGB CONC 33.6 g/dL (32.4-35.8); MEAN PLATELET VOLUME 7.2 fL (7.4-10.4); MONOCYTES % (AUTO) 5 % (2-9); NEUTROPHILS % (AUTO) 68 % (42-75); PLATELET COUNT 198 x10^3/uL (130-400); RED CELL DISTRIBUTION WIDTH 13.5 % (9.6-15.2)
--- NOTE | 2020-10-03 20:01 | NUR ---
PT DENIES ANY WITHDRAWAL SX. PT OXYGEN 88% RA, PT PLACED ON 2L OXYGEN VIA NC. PT RESTING COMFORTABLY ON GURNEY. FRIEND AT BEDSIDE.
--- NOTE | 2020-10-03 20:02 | NUR ---
ALL RESULTS ARE BACK AT THIS TIME. CHART UP FOR RECHECK.
[2020-10-03 20:12] VITALS: BP 109/75
== END 2020-10-03 20:15 | disposition home or self-care (01) ==
LOC: ED 19:49
DX: F10.220 Alcohol dependence with intoxication, uncomplicated (principal); R73.09 Other abnormal glucose; F17.200 Nicotine dependence, unspecified, uncomplicated; Y90.0 Blood alcohol level of less than 20 mg/100 ml
CPT/HCPCS: 36415; 80053; 80320; 84703; 85025; 96361; 96374; 99283; J2405; J7030; G0480